=== PATIENT | male | born 1990 | race Caucasian/White ===

== ENCOUNTER 2019-06-25 06:31 | Emergency (ER) | payer OTHER ==
[~2019-06-25] VITALS: Ht 185.4 cm; Wt 79.4 kg
[~2019-06-25 06:31] MED LIST: KEFLEX500 MG PO; NOHOMEMEDICATIONS; NORCO 5-325 TA1 EACH PO; TRUVADA1 EAC1 PO
[2019-06-25 06:34] VITALS: BP 145/88
== END 2019-06-25 07:30 | disposition home or self-care (01) ==
LOC: ER 06:31
DX: R20.2 Paresthesia of skin (principal); F17.210 Nicotine dependence, cigarettes, uncomplicated; Z88.8 Allergy status to other drugs, medicaments and biological substances

== ENCOUNTER 2019-10-17 00:41 | Emergency (ER) | payer OTHER ==
[~2019-10-17] VITALS: Ht 185.4 cm; Wt 77.1 kg
[2019-10-17] MEDS ORDERED: ANUSOL-HC30 GM TOP (01:16)
[2019-10-17] MEDS ORDERED: KEFLEX500 M1 PO (01:16)
[2019-10-17 01:40] VITALS: BP 133/81
== END 2019-10-17 01:40 | disposition home or self-care (01) ==
LOC: ER 00:41
DX: L03.113 Cellulitis of right upper limb (principal); F15.10 Other stimulant abuse, uncomplicated; F17.210 Nicotine dependence, cigarettes, uncomplicated

== ENCOUNTER 2019-11-03 12:05 | Emergency (ER) | payer OTHER ==
[~2019-11-03] VITALS: Ht 185.4 cm; Wt 77.1 kg
[~2019-11-03 12:05] MED LIST changes: +ANUSOL-HC30 GM TOP; +KEFLEX500 M1 PO
[2019-11-03] MEDS ORDERED: ANUSOL-HC30 GM TOP (12:41)
[2019-11-03] MEDS ORDERED: KEFLEX500 M1 PO (12:41)
[2019-11-03 12:55] VITALS: BP 141/87
== END 2019-11-03 12:53 | disposition home or self-care (01) ==
LOC: ER 12:05
DX: L03.113 Cellulitis of right upper limb (principal); F41.9 Anxiety disorder, unspecified; F19.10 Other psychoactive substance abuse, uncomplicated; F17.210 Nicotine dependence, cigarettes, uncomplicated; Z76.0 Encounter for issue of repeat prescription

== ENCOUNTER 2019-11-05 23:40 | Emergency (ER) | payer OTHER ==
[~2019-11-05] VITALS: Ht 185.4 cm; Wt 72.6 kg
[2019-11-06] MEDS ORDERED: BACTRIM DS TAB1 EACH PO (00:22)
[2019-11-06 00:40] VITALS: BP 134/82
== END 2019-11-06 00:52 | disposition home or self-care (01) ==
LOC: ER 23:40
DX: L02.416 Cutaneous abscess of left lower limb (principal); F17.210 Nicotine dependence, cigarettes, uncomplicated

== ENCOUNTER 2019-12-19 14:33 | Emergency (ER) | payer OTHER ==
[~2019-12-19] VITALS: Ht 185.4 cm; Wt 77.1 kg
[~2019-12-19 14:33] MED LIST changes: +BACTRIM DS TAB1 EACH PO
[2019-12-19 14:34] VITALS: BP 136/84
== END 2019-12-19 15:00 | disposition home or self-care (01) ==
LOC: ER 14:33
DX: M25.775 Osteophyte, left foot (principal); M25.774 Osteophyte, right foot; F17.210 Nicotine dependence, cigarettes, uncomplicated; G89.29 Other chronic pain

== ENCOUNTER 2020-06-18 02:08 | Emergency (ER) | payer OTHER ==
[~2020-06-18] VITALS: Ht 185.4 cm; Wt 77.1 kg
[2020-06-18] MEDS ORDERED: KEFLEX500 M1 PO (04:03)
[2020-06-18 04:29] VITALS: BP 149/90
== END 2020-06-18 04:31 | disposition home or self-care (01) ==
LOC: ER 02:08
DX: S81.812A Laceration without foreign body, left lower leg, initial encounter (principal); F17.210 Nicotine dependence, cigarettes, uncomplicated; Z79.2 Long term (current) use of antibiotics; W27.8XXA Contact with other nonpowered hand tool, initial encounter; Y93.89 Activity, other specified; Y92.89 Other specified places as the place of occurrence of the external cause; Y99.8 Other external cause status

== ENCOUNTER 2020-07-07 12:53 | Emergency (ER) | payer OTHER ==
[~2020-07-07] VITALS: Ht 185.4 cm; Wt 77.1 kg
[2020-07-07 13:00] VITALS: BP 133/89
[2020-07-07] MEDS ORDERED: BACTRIM DS TAB1 EACH PO (13:11)
== END 2020-07-07 13:44 | disposition home or self-care (01) ==
LOC: ER 12:53
DX: S81.812D Laceration without foreign body, left lower leg, subsequent encounter (principal); F17.210 Nicotine dependence, cigarettes, uncomplicated; Z79.899 Other long term (current) drug therapy; X58.XXXD Exposure to other specified factors, subsequent encounter

== ENCOUNTER 2020-09-17 03:44 | Emergency (ER) | payer OTHER ==
[~2020-09-17] VITALS: Ht 175.3 cm; Wt 68.0 kg
[2020-09-17 04:54] VITALS: BP 172/90
== END 2020-09-17 04:56 | disposition home or self-care (01) ==
LOC: ER 03:44
DX: Z48.00 Encounter for change or removal of nonsurgical wound dressing (principal); F17.210 Nicotine dependence, cigarettes, uncomplicated; Z53.29 Procedure and treatment not carried out because of patient's decision for other reasons

== ENCOUNTER 2020-12-13 23:54 | Emergency (ER) | payer OTHER | END 2020-12-14 00:01 | disposition left against medical advice (07) | LOC: ER 23:54 | DX: F41.0 Panic disorder [episodic paroxysmal anxiety] (principal); Z53.21 Procedure and treatment not carried out due to patient leaving prior to being seen by health care provider ==